=== PATIENT | female | born 1960 | race Caucasian/White ===

== ENCOUNTER → 2023-09-01 01:40 | Outpatient (CLI) | payer OTHER, SELFPAY ==
--- NOTE | 2023-09-01 | ETT_ITS ---
APPROVED REPORT Exam: Exercise Treadmill Patient Location: Out-Patient Room/Bed: Ordering Provider:NERISSA FRANCIS, Contact Number: [phone] BMI: 40.43 Baseline Rhythm: Sinus Rhythm Indications: Chest pain, Medical History Medical History: HLD, hypocalcemia, hypothyroidism, MS, prediabetes, vitamin D deficiency Cardiac Medications: None Allergies: Sulfa drugs Cardiac Risk Factors: Prediabetes, Obesity Previous Cardiac Procedures: None Pretest Chest Pain Characteristics: None Exercise History: Sedentary Physical Disabilities: None Lung Sounds: Clear to auscultation Heart Sounds: Regular Stress Test Details Test: Exercise stress testing was performed using a Andrea protocol. Rest Stress HR Resting HR Supine: 75 bpm Max Heart Rate (APMHR): 158 bpm Resting HR Standin bpm Target HR (85% APMHR): 134 bpm Max HR Achieved: 158 bpm % of APMHR: 100 Recovery HR: 86 bpm HR response to stress: Normal HR response to stress BP Resting BP Supine: 142/92 mmHg Resting BP Standin/90 mmHg Max BP: 200/80 mmHg Recovery BP: 142/72 mmHg BP response to stress: Normal blood pressure response to stress. ECG Resting ECG: Sinus Rhythm Ectopy: None Stress ECG: Sinus Tachycardia ST Change: No significant ST segment changes noted Arrhythmia: Occasional PVC's Recovery ECG: Sinus Rhythm Recovery ST Change: No significant ST segment changes noted Recovery Arrhythmia: None Clinical Reason for Termination: Target HR Achieved (100% HR achieved) Stress Symptoms: Mild SOB Exercise duration: 06 min49 sec Highest Stage Reached: Stage 3: 3.4 mph at 14% grade. Exercise capacity: 8.30 METs Angina Score: None Luke Treadmill Score: 6.1 Rate Pressure Product: [id number] Stress ECG Conclusion 1. Resting electrocardiogram showed poor R wave progression 2. Patient exercised on the Andrea protocol and completed a workload of 8.3 METS 3. Normal heart rate and blood pressure response to exercise. Patient achieved 100% of predicted hea rt rate for age 4. There was no electrocardiographic evidence of myocardial ischemia 5. There were no significant dysrhythmias Luke Treadmill Score is 6.1 which is Low risk. Stress Test Summary STAGE Time (mins) Speed (mph) Grade (%) HR BP SpO2 SYMPTOMS METS Supine 75 142/92 95% Standing 87 134/90 1 3 1.7 10 132 150/60 94% 4.5 2 6 2.5 12 150 200/60 94% 7 3 9 3.4 14 158 10 1 min recovery 92 200/80 95% 3 min recovery 91 142/72 96% 6 min recovery 86 96%
== END ==
PROVIDERS: PCP Family Medicine; Visit Provider Family Medicine
DX: R07.9 Chest pain, unspecified (principal)
CPT/HCPCS: 93017